=== PATIENT | female | born 1970 | race African-American/Black ===

== ENCOUNTER 2016-09-09 18:56 | Emergency (ER) | payer MEDICAID ==
[~2016-09-09] VITALS: Ht 154.9 cm; Wt 63.5 kg
[~2016-09-09 18:56] MED LIST: AMLO5TAB2 PO
[2016-09-09 18:59] VITALS: BP 130/82
[2016-09-09 19:42] LABS: Basophils # (auto) 0.1 uL; Basophils % (auto) 0.9 % (0.0-2.0); CONDITION Y; Eosinophils # (auto) 0.3 uL; Eosinophils % (auto) 4.8 % (0.0-7.0); Hemoglobin 11.3 g/dL (12.2-16.2); Lymphocytes # (auto) 2.5 uL; Lymphocytes % (auto) 40.3 % (10.0-50.0); Mean Corpuscular Hemoglobin 28.6 pg (28.0-32.0); Mean Corpuscular Hgb Conc. 32.1 g/dL (32.0-36.0); Mean Corpuscular Volume 89.2 fL (80.0-100.0); Mean Platelet Volume 9.8 fL (7.4-10.4); Monocytes # (auto) 0.7 uL; Monocytes % (auto) 11.1 % (0.0-12.0); Neutrophils # (auto) 2.7 uL; Neutrophils % (auto) 42.9 % (37.0-80.0); Platelet Count (auto) 212 10^3/uL (140-450); SUSPECT SEE PRINTOUT; White Blood Cell 6.2 10^3/uL (4.4-10.8)
[2016-09-09 20:10] LABS: Anion Gap 8 (5-15); Aspartate Aminotransferase 18 U/L (15-37); BUN/Creatinine Ratio 16.7; Blood Urea Nitrogen 18 mg/dL (7-18); Calcium 8.4 mg/dL (8.5-10.1); Carbon Dioxide 26 mmol/L (21-32); Chloride 108 mmol/L (98-107); GFR African American 71 mL/min; GFR Non-African American 58 mL/min; Glucose 90 mg/dL (74-106); Magnesium 2.1 mg/dL (1.6-2.6); Potassium 3.9 mmol/L (3.5-5.1); Sodium 142 mmol/L (136-145)
[2016-09-09 20:15] LABS: Alkaline Phosphatase 47 U/L (45-117); Bilirubin, Total 0.2 mg/dL (0.2-1.0); Total Protein 7.6 g/dL (6.4-8.2)
== END 2016-09-10 05:27 | disposition left against medical advice (07) ==
LOC: ER 19:07
DX: R07.9 Chest pain, unspecified (principal); Z53.21 Procedure and treatment not carried out due to patient leaving prior to being seen by health care provider
CPT/HCPCS: 36415; 71020; 80053; 83735; 84484; 85025; 93005

== ENCOUNTER 2017-05-12 15:20 | Emergency (ER) | payer MEDICAID ==
[~2017-05-12] VITALS: Ht 157.5 cm; Wt 63.5 kg
[2017-05-12 17:18] LABS: Urine Bacteria FEW /hpf (None Seen); Urine Blood 2+ /uL (Negative); Urine Mucus FEW (None Seen); Urine WBC 784 /hpf (0 - 5); Urine WBC Clumps PRESENT /hpf (None Seen)
[2017-05-12 17:31] VITALS: BP 130/77
[2017-05-12] MEDS ORDERED: PHENAZOPYRIDINE HCL 100 MG TAB PO ONE (17:45)
== END 2017-05-12 18:37 | disposition home or self-care (01) ==
LOC: ER 15:24
DX: N39.0 Urinary tract infection, site not specified (principal); J45.909 Unspecified asthma, uncomplicated; E11.9 Type 2 diabetes mellitus without complications; I10 Essential (primary) hypertension; Z88.2 Allergy status to sulfonamides
CPT/HCPCS: 81001

== ENCOUNTER 2017-12-26 10:44 | Emergency (ER) | payer MEDICAID ==
[~2017-12-26] VITALS: Ht 154.9 cm; Wt 68.0 kg
[~2017-12-26 10:44] MED LIST changes: +AMLO5TAB13 PO; -AMLO5TAB2 PO
[2017-12-26 10:58] VITALS: BP 153/81
== END 2017-12-26 12:01 | disposition home or self-care (01) ==
LOC: ER 10:44
DX: J01.10 Acute frontal sinusitis, unspecified (principal); I10 Essential (primary) hypertension; J45.909 Unspecified asthma, uncomplicated; Z88.2 Allergy status to sulfonamides
CPT/HCPCS: 81002

== ENCOUNTER 2020-09-12 21:30 | Emergency (ER) | payer MEDICAID ==
[~2020-09-12] VITALS: Ht 154.9 cm; Wt 68.0 kg
[~2020-09-12 21:30] MED LIST changes: +AMLO-489 PO; -AMLO5TAB13 PO
[2020-09-13 00:09] VITALS: BP 118/82
[2020-09-13] MEDS ORDERED: HYDROcodone-ACET 10/325MG TAB PO ONE (01:15)
== END 2020-09-13 03:41 | disposition home or self-care (01) ==
LOC: ER 21:30
DX: Q18.1 Preauricular sinus and cyst (principal); R59.0 Localized enlarged lymph nodes; I10 Essential (primary) hypertension; J45.909 Unspecified asthma, uncomplicated; Z79.899 Other long term (current) drug therapy; Z88.2 Allergy status to sulfonamides

== ENCOUNTER 2020-11-01 08:46 | Emergency (ER) | payer MEDICAID ==
[~2020-11-01] VITALS: Ht 154.9 cm; Wt 72.6 kg
[2020-11-01 10:41] VITALS: BP 134/86
== END 2020-11-01 11:32 | disposition home or self-care (01) ==
LOC: ER 08:46
DX: S05.01XA Injury of conjunctiva and corneal abrasion without foreign body, right eye, initial encounter (principal); J45.909 Unspecified asthma, uncomplicated; I10 Essential (primary) hypertension; Z88.2 Allergy status to sulfonamides; X58.XXXA Exposure to other specified factors, initial encounter; Y93.89 Activity, other specified; Y92.89 Other specified places as the place of occurrence of the external cause; Y99.8 Other external cause status

== ENCOUNTER 2021-04-24 10:18 | Emergency (ER) | payer MEDICAID ==
[~2021-04-24] VITALS: Ht 165.1 cm; Wt 74.8 kg
[2021-04-24 10:49] VITALS: BP 141/51
[2021-04-24] MEDS ORDERED: AMOX-277 PO (11:35)
[2021-04-24] MEDS ORDERED: ACE650RS PR ×2 (11:35→11:40)
== END 2021-04-24 11:43 | disposition home or self-care (01) ==
LOC: ER 10:18
DX: J03.90 Acute tonsillitis, unspecified (principal); H66.91 Otitis media, unspecified, right ear; J45.909 Unspecified asthma, uncomplicated; I10 Essential (primary) hypertension

== ENCOUNTER 2022-07-16 14:07 | Emergency (ER) | payer MEDICAID ==
[~2022-07-16 14:07] MED LIST changes: +ACE650RS PR; +AMOX-277 PO
[2022-07-16] MEDS ORDERED: ACET-1080 PO (15:08)
[2022-07-16] MEDS ORDERED: METH750T22 PO (15:09)
[2022-07-16 15:12] VITALS: BP 131/74
[2022-07-16] MEDS ORDERED: ACETAMINOPHEN 500 MG TAB PO ONE (15:15)
== END 2022-07-16 15:49 | disposition home or self-care (01) ==
LOC: ER 14:07
DX: M24.812 Other specific joint derangements of left shoulder, not elsewhere classified (principal); J45.909 Unspecified asthma, uncomplicated; I10 Essential (primary) hypertension; Z88.2 Allergy status to sulfonamides; Z88.1 Allergy status to other antibiotic agents
CPT/HCPCS: 73030; 93005

== ENCOUNTER 2022-09-17 10:30 | Emergency (ER) | payer MEDICAID ==
[~2022-09-17] VITALS: Ht 154.9 cm; Wt 71.3 kg
[~2022-09-17 10:30] MED LIST changes: +ACET-1080 PO; -AMLO-489 PO; +AMLO1TAB22 PO; -AMOX-277 PO; +AMOX875T4 PO; +METH-1182 PO
[2022-09-17 10:46] VITALS: BP_DIAS 81
[2022-09-17 11:17] VITALS: BP_SYST 73
[2022-09-17] MEDS ORDERED: SODIUM CHLORIDE 0.9% 1,000 ML IV ONE (11:45)
[2022-09-17] MEDS ORDERED: PROCHLORPERAZINE EDISYLATE 5 MG/ML 2ML VIAL IM ONE (11:45)
[2022-09-17 11:50] LABS: Basophils # (auto) 0.1 10 ^3/uL (0-0.2); Basophils % (auto) 0.9 % (0.0-2.0); Eosinophils # (auto) 0.2 10 ^3/uL (0-0.8); Eosinophils % (auto) 2.7 % (0.0-7.0); Hematocrit 38.5 % (36.0-46.0); Hemoglobin 12.4 g/dL (12.2-16.2); Lymphocytes % (auto) 34.7 % (10.0-50.0); Mean Corpuscular Hemoglobin 28.3 pg (28.0-32.0); Mean Corpuscular Hgb Conc. 32.1 g/dL (32.0-36.0); Monocytes # (auto) 0.4 10 ^3/uL (0-1.3); Monocytes % (auto) 6.7 % (0.0-12.0); Neutrophils # (auto) 3.2 10 ^3/uL (1.6-8.6); Nucleated Red Blood Cells % 0.1 %; Red Blood Cells 4.38 10^6/uL (4.0-5.20); Red Cell Distribution Width 13.9 % (11.8-14.3); White Blood Cell 5.8 10^3/uL (4.4-10.8)
[2022-09-17 12:29] LABS: Albumin 4.3 g/dL (3.4-5.0); BUN/Creatinine Ratio 13.9 (10.0-20.0); Calcium 9.8 mg/dL (8.5-10.1); Potassium 4.5 mmol/L (3.5-5.1)
[2022-09-17 13:08] LABS: Bilirubin, Total 0.3 mg/dL (0.2-1.0); Total Protein 8.4 g/dL (6.4-8.2)
[2022-09-17 14:16] LABS: Urine Bacteria NONE SEEN /hpf (None Seen); Urine Blood Negative /uL (Negative); Urine Specific Gravity 1.018 (1.001-1.035); Urine WBC <1 /hpf (0 - 5)
== END 2022-09-17 14:35 | disposition left against medical advice (07) ==
LOC: ER 10:30
DX: E86.0 Dehydration (principal); R42 Dizziness and giddiness; I10 Essential (primary) hypertension; R06.02 Shortness of breath; Z88.2 Allergy status to sulfonamides
CPT/HCPCS: 36415; 70450; 71045; 80053; 81001; 83880; 84484; 85025; 87040; 93005; 96360; 96372; 99285; J0780; J7030

== ENCOUNTER 2023-03-20 11:40 | Emergency (ER) | payer MEDICAID ==
[~2023-03-20] VITALS: Ht 154.9 cm; Wt 69.0 kg
[2023-03-20 12:12] LABS: Basophils # (auto) 0.1 10 ^3/uL (0-0.2); Basophils % (auto) 0.8 % (0.0-2.0); Eosinophils # (auto) 0.4 10 ^3/uL (0-0.8); Eosinophils % (auto) 4.7 % (0.0-7.0); Hematocrit 36.8 % (36.0-46.0); Lymphocytes # (auto) 2.9 10 ^3/uL (0.4-5.4); Lymphocytes % (auto) 31.3 % (10.0-50.0); Mean Corpuscular Hemoglobin 28.2 pg (28.0-32.0); Mean Corpuscular Hgb Conc. 32.6 g/dL (32.0-36.0); Mean Corpuscular Volume 86.5 fL (80.0-100.0); Monocytes # (auto) 0.9 10 ^3/uL (0-1.3); Monocytes % (auto) 9.8 % (0.0-12.0); Neutrophils # (auto) 4.9 10 ^3/uL (1.6-8.6); Neutrophils % (auto) 53.4 % (37.0-80.0); Nucleated Red Blood Cells % 0.1 %; Red Blood Cells 4.25 10^6/uL (4.0-5.20); Red Cell Distribution Width 14.3 % (11.8-14.3); White Blood Cell 9.1 10^3/uL (4.4-10.8)
[2023-03-20] MEDS ORDERED: KETOROLAC TROMETH 30 MG/ML 1ML VIAL IV ONE (12:15)
[2023-03-20] MEDS ORDERED: SODIUM CHLORIDE 0.9% 1,000 ML IV ONE (12:15)
[2023-03-20] MEDS ORDERED: ASPirin 81 mg TAB PO ONE (12:15)
[2023-03-20 12:20] LABS: INR 0.97 (0.9-1.15); Partial Thromboplastin Time 28.5 SEC (24.5-34.5); Prothrombin Time 10.2 sec (9.3-11.8)
[2023-03-20 12:27] LABS: Urine Bacteria NONE SEEN /hpf (None Seen); Urine Blood Negative /uL (Negative); Urine Clarity Clear (Clear); Urine Color Yellow (Yellow); Urine Mucus FEW (None Seen); Urine Protein, UAD TRACE (Negative); Urine Specific Gravity 1.028 (1.001-1.035); Urine WBC 3 /hpf (0 - 5)
[2023-03-20 12:27] LABS: Alanine Aminotransferase 22 U/L (7-40); Albumin 5.2 g/dL (3.2-4.8); Alkaline Phosphatase 82 U/L (46-116); Anion Gap 9 (5-15); Aspartate Aminotransferase 23 U/L (13-40); BUN/Creatinine Ratio 13.7 (10.0-20.0); Bilirubin, Total 0.2 mg/dL (0.2-1.0); Blood Urea Nitrogen 27 mg/dL (9-23); Calcium 10.8 mg/dL (8.5-10.1); Carbon Dioxide 28 mmol/L (20-30); Chloride 100 mmol/L (98-107); Glucose 122 mg/dL (74-106); Potassium 4.4 mmol/L (3.5-5.1); Sodium 137 mmol/L (136-145); Total Protein 8.3 g/dL (5.7-8.2)
[2023-03-20] MEDS ORDERED: HYDR-4902 PO (15:05)
[2023-03-20] MEDS ORDERED: NITR-87 PO (15:05)
[2023-03-20 17:44] VITALS: BP 110/74; PULSE 84; RESP 19; TEMP 98.1; O2SAT 96
== END 2023-03-20 17:46 | disposition home or self-care (01) ==
LOC: ER 11:40
DX: E11.21 Type 2 diabetes mellitus with diabetic nephropathy (principal); R07.89 Other chest pain; N39.0 Urinary tract infection, site not specified; M79.601 Pain in right arm; M79.605 Pain in left leg; I10 Essential (primary) hypertension; J45.909 Unspecified asthma, uncomplicated; Z98.890 Other specified postprocedural states; Z88.8 Allergy status to other drugs, medicaments and biological substances; Z79.899 Other long term (current) drug therapy
CPT/HCPCS: 36415; 71046; 80053; 81001; 84484; 85025; 85610; 85730; 93005; 96361; 96374; 99285; J1885; J7030

== ENCOUNTER 2023-12-05 14:24 | Inpatient (IN) | payer MEDICAID ==
[~2023-12-05] VITALS: Ht 156.2 cm; Wt 72.3 kg
[~2023-12-05 14:24] MED LIST changes: +HYDR-4902 PO; +NITR-87 PO
[2023-12-05 15:57] LABS: Chloride 103 mmol/L (98-107); Potassium 4.4 mmol/L (3.5-5.1); Sodium 138 mmol/L (136-145)
[2023-12-05 15:58] LABS: Anion Gap 7 (5-15); Calcium 10.2 mg/dL (8.7-10.4); Carbon Dioxide 28 mmol/L (20-30)
[2023-12-05 16:00] LABS: Basophils # (auto) 0.1 10 ^3/uL (0-0.2); Basophils % (auto) 0.9 % (0.0-2.0); Eosinophils # (auto) 0.3 10 ^3/uL (0-0.8); Eosinophils % (auto) 5.1 % (0.0-7.0); Hematocrit 34.9 % (36.0-46.0); Hemoglobin 11.4 g/dL (12.2-16.2); Lymphocytes # (auto) 3.3 10 ^3/uL (0.4-5.4); Lymphocytes % (auto) 47.6 % (10.0-50.0); Mean Corpuscular Hemoglobin 28.8 pg (28.0-32.0); Mean Corpuscular Hgb Conc. 32.5 g/dL (32.0-36.0); Mean Corpuscular Volume 88.5 fL (80.0-100.0); Monocytes # (auto) 0.7 10 ^3/uL (0-1.3); Monocytes % (auto) 9.8 % (0.0-12.0); Neutrophils # (auto) 2.5 10 ^3/uL (1.6-8.6); Neutrophils % (auto) 36.6 % (37.0-80.0); Nucleated Red Blood Cells % 0.1 %; Platelet Count (auto) 256 10^3/uL (140-450); Red Blood Cells 3.95 10^6/uL (4.0-5.20); Red Cell Distribution Width 14.1 % (11.8-14.3); White Blood Cell 6.8 10^3/uL (4.4-10.8)
[2023-12-05 16:03] LABS: Blood Urea Nitrogen 18 mg/dL (9-23); Glucose 79 mg/dL (74-106)
[2023-12-05] MEDS ORDERED: DOCUSATE SOD 100 MG CAP PO PRN (19:30)
[2023-12-05] MEDS ORDERED: ACETAMINOPHEN 325 MG TAB PO PRN (19:30)
[2023-12-05] MEDS ORDERED: NITROGLYCERIN 0.4 MG SL TAB SL PRN (20:45)
[2023-12-05] MEDS ORDERED: DEXTROSE (50%) 50ML SYRG IV PRN (20:45)
[2023-12-05] MEDS: ACCU-CHEK COMFORT CURVE STRIP VI SCH (22:00)
[2023-12-05] MEDS: InsuLIN REG 1unit/0.01ml Soln (100units/ml) SC SCH (22:00)
[2023-12-05 22:41] VITALS: BP 122/68; PULSE 76; RESP 20; TEMP 98; O2SAT 100
[2023-12-06] MEDS: HYDROcodone-ACET 5/325MG TAB PO PRN (04:10)
[2023-12-06 06:57] LABS: Basophils # (auto) 0 10 ^3/uL (0-0.2); Basophils % (auto) 0.5 % (0.0-2.0); Eosinophils # (auto) 0.4 10 ^3/uL (0-0.8); Hematocrit 36.8 % (36.0-46.0); Hemoglobin 12.1 g/dL (12.2-16.2); Lymphocytes # (auto) 2.8 10 ^3/uL (0.4-5.4); Lymphocytes % (auto) 43.6 % (10.0-50.0); Mean Corpuscular Hemoglobin 28.9 pg (28.0-32.0); Mean Corpuscular Hgb Conc. 32.9 g/dL (32.0-36.0); Mean Corpuscular Volume 87.9 fL (80.0-100.0); Monocytes # (auto) 0.6 10 ^3/uL (0-1.3); Monocytes % (auto) 9.6 % (0.0-12.0); Neutrophils # (auto) 2.6 10 ^3/uL (1.6-8.6); Neutrophils % (auto) 40.3 % (37.0-80.0); Nucleated Red Blood Cells % 0.1 %; Platelet Count (auto) 235 10^3/uL (140-450); Red Blood Cells 4.19 10^6/uL (4.0-5.20); Red Cell Distribution Width 14.4 % (11.8-14.3); White Blood Cell 6.5 10^3/uL (4.4-10.8)
[2023-12-06 07:25] LABS: Alanine Aminotransferase 21 U/L (7-40); Albumin 4.5 g/dL (3.2-4.8); Alkaline Phosphatase 69 U/L (46-116); Anion Gap 9 (5-15); Aspartate Aminotransferase 19 U/L (13-40); BUN/Creatinine Ratio 10.3 (10.0-20.0); Bilirubin, Total 0.3 mg/dL (0.2-1.0); Blood Urea Nitrogen 14 mg/dL (9-23); Calcium 10.4 mg/dL (8.7-10.4); Carbon Dioxide 24 mmol/L (20-30); Chloride 104 mmol/L (98-107); Glucose 95 mg/dL (74-106); Potassium 4.1 mmol/L (3.5-5.1); Sodium 137 mmol/L (136-145); Total Protein 7.4 g/dL (5.7-8.2)
[2023-12-06] MEDS: ASPirin 81 mg TAB PO SCH (09:56)
[2023-12-06] MEDS: ALBUTEROL SULF 2.5 MG/0.5ML(0.5%) NEB SOLN NEB PRN (12:29)
[2023-12-06] MEDS: IPRATROPIUM BROM 0.5 MG/2.5ML INH SOL NEB PRN (12:29)
[2023-12-06 13:05] VITALS: PULSE 72; RESP 16
[2023-12-06] MEDS: MORPHINE SULFATE INJ 2 MG/ml SYRG IV PRN (17:04)
[2023-12-06] MEDS: ONDANSETRON HCL 4 MG/2 ML VIAL IV PRN (17:04)
[2023-12-06 18:25] VITALS: O2SAT 99
[2023-12-06] MEDS: amLODIPine BESYLATE 5 MG TAB PO SCH (23:04)
[2023-12-06] MEDS: PRAVASTATIN SODIUM 20 MG TAB PO SCH (23:10)
[2023-12-07] VITALS (11 sets, daily range): BP systolic 100–158; BP diastolic 61–84; PULSE 68–113; RESP 16–18; TEMP 97.6–98.1; O2SAT 95–100
[2023-12-07] MEDS ORDERED: ROSU20TA56 PO (03:41)
[2023-12-07] MEDS ORDERED: PRED10TA PO (03:41)
[2023-12-07] MEDS ORDERED: METO25TA93 PO (03:41)
[2023-12-07] MEDS ORDERED: HYDR12.55 PO (03:41)
[2023-12-07] MEDS ORDERED: AMLO1TAB21 PO (03:41)
[2023-12-07] MEDS ORDERED: SITA100T7 PO (03:41)
[2023-12-07] MEDS ORDERED: FERR-7 PO (03:41)
[2023-12-07] MEDS ORDERED: HYDR-4072 PO (03:41)
[2023-12-07] MEDS ORDERED: FOLI-119 PO (03:41)
[2023-12-07] MEDS ORDERED: BECL80AE11 IN (03:46)
[2023-12-07] MEDS ORDERED: BUDE1AER4 IN (03:50)
[2023-12-07 07:52] LABS: Basophils # (auto) 0 10 ^3/uL (0-0.2); Basophils % (auto) 0.5 % (0.0-2.0); Eosinophils # (auto) 0.3 10 ^3/uL (0-0.8); Eosinophils % (auto) 4.7 % (0.0-7.0); Hematocrit 34.9 % (36.0-46.0); Hemoglobin 11.7 g/dL (12.2-16.2); Lymphocytes # (auto) 3.2 10 ^3/uL (0.4-5.4); Mean Corpuscular Hemoglobin 29.6 pg (28.0-32.0); Mean Corpuscular Hgb Conc. 33.6 g/dL (32.0-36.0); Mean Corpuscular Volume 88.1 fL (80.0-100.0); Monocytes # (auto) 0.7 10 ^3/uL (0-1.3); Monocytes % (auto) 10.1 % (0.0-12.0); Neutrophils # (auto) 2.6 10 ^3/uL (1.6-8.6); Neutrophils % (auto) 37.7 % (37.0-80.0); Platelet Count (auto) 245 10^3/uL (140-450); Red Blood Cells 3.96 10^6/uL (4.0-5.20); Red Cell Distribution Width 14.1 % (11.8-14.3); White Blood Cell 6.8 10^3/uL (4.4-10.8)
[2023-12-07 08:17] LABS: Anion Gap 9 (5-15); Carbon Dioxide 25 mmol/L (20-30); Chloride 104 mmol/L (98-107); Potassium 3.8 mmol/L (3.5-5.1); Sodium 138 mmol/L (136-145)
[2023-12-07 08:18] LABS: Calcium 9.8 mg/dL (8.7-10.4)
[2023-12-07 08:23] LABS: BUN/Creatinine Ratio 13.2 (10.0-20.0); Blood Urea Nitrogen 22 mg/dL (9-23); Glucose 108 mg/dL (74-106)
[2023-12-07] MEDS: hydroCHLOROthiazide 25 MG TAB PO SCH (09:18)
[2023-12-07] MEDS ORDERED: BACLOFEN 10 MG TAB PO ONE (22:15)
[2023-12-08] VITALS (8 sets, daily range): BP systolic 97–116; BP diastolic 51–74; PULSE 68–89; RESP 18–22; TEMP 97.5–98; O2SAT 97–99
[2023-12-08 06:02] LABS: Basophils # (auto) 0 10 ^3/uL (0-0.2); Basophils % (auto) 0.4 % (0.0-2.0); Eosinophils # (auto) 0.2 10 ^3/uL (0-0.8); Eosinophils % (auto) 3.6 % (0.0-7.0); Hemoglobin 12.5 g/dL (12.2-16.2); Lymphocytes # (auto) 3.1 10 ^3/uL (0.4-5.4); Lymphocytes % (auto) 45.6 % (10.0-50.0); Mean Corpuscular Hemoglobin 28.9 pg (28.0-32.0); Mean Corpuscular Hgb Conc. 32.9 g/dL (32.0-36.0); Mean Corpuscular Volume 87.9 fL (80.0-100.0); Monocytes # (auto) 0.7 10 ^3/uL (0-1.3); Neutrophils # (auto) 2.8 10 ^3/uL (1.6-8.6); Neutrophils % (auto) 40.4 % (37.0-80.0); Nucleated Red Blood Cells % 0.1 %; Platelet Count (auto) 266 10^3/uL (140-450); Red Blood Cells 4.32 10^6/uL (4.0-5.20); Red Cell Distribution Width 14.2 % (11.8-14.3); White Blood Cell 6.9 10^3/uL (4.4-10.8)
[2023-12-08 06:19] LABS: Anion Gap 4 (5-15); Carbon Dioxide 29 mmol/L (20-30); Chloride 102 mmol/L (98-107); Potassium 4.2 mmol/L (3.5-5.1); Sodium 135 mmol/L (136-145)
[2023-12-08 06:20] LABS: Calcium 10.7 mg/dL (8.7-10.4)
[2023-12-08 06:25] LABS: Blood Urea Nitrogen 24 mg/dL (9-23); Glucose 97 mg/dL (74-106)
[2023-12-08] MEDS: BACLOFEN 10 MG TAB PO ONE (12:22)
== END 2023-12-08 20:43 | disposition home or self-care (01) | DRG 861 ==
LOC: ER 14:24 → TELE 20:41 → TELE-WESTW 12-07 02:45 → WEST WING 12-07 17:09
PROVIDERS: ADMIT Internal Medicine Geriatric Medicine; ATTEND Internal Medicine Geriatric Medicine
DX: R53.1 Weakness (principal); E11.22 Type 2 diabetes mellitus with diabetic chronic kidney disease; I13.10 Hypertensive heart and chronic kidney disease without heart failure, with stage 1 through stage 4 chronic kidney disease, or unspecified chronic kidney disease; E78.5 Hyperlipidemia, unspecified; M54.12 Radiculopathy, cervical region; N18.30 Chronic kidney disease, stage 3 unspecified; J44.9 Chronic obstructive pulmonary disease, unspecified; Z88.2 Allergy status to sulfonamides
CPT/HCPCS: 36415; 70450; 70551; 80048; 80053; 82306; 82607; 82962; 84443; 84484; 85025; 93005; 93306; 93886; 93971; 94640; 99291; G0378; J2405

== ENCOUNTER 2024-03-30 10:51 | Emergency (ER) | payer MEDICAID ==
[~2024-03-30] VITALS: Ht 154.9 cm; Wt 72.3 kg
[~2024-03-30 10:51] MED LIST changes: -ACE650RS PR; -ACET-1080 PO; +AMLO1TAB21 PO; -AMLO1TAB22 PO; -AMOX875T4 PO; +BECL80AE11 IN; +BUDE1AER4 IN; +FERR-7 PO; +FOLI-119 PO; +HYDR-4072 PO; -HYDR-4902 PO; +HYDR12.55 PO; -METH-1182 PO; +METO25TA93 PO; -NITR-87 PO; +PRED10TA PO; +ROSU20TA56 PO; +SITA100T7 PO
--- NOTE | 2024-03-30 12:03 | ED.PDOC ---
History of Present Illness HPI Comments Kym Jackson is a 53-year-old female patient who presents to the ED with chief complaint of hypoglycemia. Patient has device that continuously monitors glucose, alert family of low blood sugar (33) we will patient was sleeping, when awake patient felt dizzy and generalized shakiness, requiring food intake with partial resolution of hypoglycemia. Per patient, she has not been taking metformin and Januvia for the past month due to low glucose levels, has started taking prednisone approximately one month ago due to or a and lupus. Patient also reports presenting fever, chills, dyspnea, dry cough and loose stool for the past week. Patient has retrosternal stabbing chest pain in variable f unctional class and abdominal pain which has lasted for over one month, has been evaluated by candle wrapper who suspect pain secondary to lipoma. Past medical history: Diabetes, asthma, hypertension, CKD stage III, gout, lupus, RA, COPD with no home oxygen requirement, torticollis secondary to swollen lymph nodes Surgical history: 2010 , wrist surgery Family history: Diabetes and hypertension in all family members. Ovarian cancer in grandmother, grandfather had brain cancer Social history: Lives in [place] with and sons. Denies current tobacco, alcohol and other drug abuse Allergies: Sulfas Home medication: Metformin and Januvia which was discontinued approximately one month ago. Symbicort, allopurinol, prednisone 10 mg p.o. daily, amlodipine, hydrochlorothiazide, [place], baclofen Chief Complaint: Hypoglycemia Time Seen by MD: 10:53 Primary Care Provider: HILDA Allergies: Coded Allergies: Sulfa Antibiotics (Verified Adverse Reaction, Severe, 02/29/16) Home Meds Reported Medications Budesonide-Formoterol Fumarate (Budesonide/Formoterol Fum 160-4.5 Mcg/Act) 1 Aer Aer, 2 PUFF IN BID, AER 12/07/23 Beclomethasone Dipropionate (Qvar Redihaler) 80 Mcg/Act Aer, 2 PUFF IN QID, AER 12/07/23 Prednisone (Prednisone) 10 Mg Tab, 1 TAB PO DAILY 12/07/23 Metoprolol Succinate (Metoprolol Succinate Er) 25 Mg Tab, 1 TAB PO QWEEKLY 12/07/23 Rosuvastatin Calcium (Rosuvastatin Calcium) 20 Mg Tab, 1 TAB PO DAILY 12/07/23 Hydrocodone-Acetaminophen (Hydrocodone/Acetaminophen 10-325 mg) 1 Tab Tab, 1 TAB PO Q6HPRN PRN for PAIN SCALE 7 THRU 10 12/07/23 Ferrous Sulfate (Iron) 325 Mg Tab, 325 MG PO DAILY, TAB 12/07/23 Folic Acid (Folic Acid) 1 Mg Tab, 1 TAB PO DAILY 12/07/23 Sitagliptin Phosphate (Januvia) 100 Mg Tab, 1 TAB PO DAILY 12/07/23 Amlodipine Besylate (Amlodipine Besylate) 2.5 Mg Tab, 1 TAB PO DAILY 12/07/23 Hydrochlorothiazide (Hydrochlorothiazide) 12.5 Mg Tab, 1 TAB PO QAM 12/07/23 Mode of Arrival: Ambulatory Past Medical History PAST MEDICAL HISTORY: Asthma, DM, HTN 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 BUSINESS ACCOUNT LEADER History Family History Family History: Unknown Social History Smoker: Non-Smoker Alcohol: Denies ETOH Use Drugs: Denies Drug Use Lives In: Home Physical Exam General Appearance: No Apparent Distress, Normal HEENT: Normal ENT Inspection, Pharynx Normal, TMs Normal Neck: Full Range of Motion, Lymphadenopathy (R), Normal, Normal Inspection, Tender Lateral Respiratory: Chest Non-Tender, Lungs Clear, No Accessory Muscle Use, No Respiratory Distress, Normal Breath Sounds Cardiovascular: No Edema, No JVD, No Murmur, No Gallop, Normal Peripheral Pulses, Regular Rate/Rhythm Breast Exam: Deferred Gastrointestinal: No Organomegaly, No Pulsatile Mass, Normal Bowel Sounds, RUQ, Soft Genitalia: Deferred Pelvic: Deferred Rectal: Deferred Extremities: No calf tenderness, Normal capillary refill, Normal inspection, Normal range of motion, Non-tender, No pedal edema Neurologic: Alert, beef pluck trimmer II-XII nml as Tested, No Motor Deficits, Normal Affect, Normal Mood, No Sensory Deficits Cerebellar Function: Normal Reflexes: Normal Skin: Dry, Normal Color, Warm Lymphatic: Cervical Adenopathy (R) Was a procedure done? Was a procedure done?: No Differential Dx Considerations may include: Pneumonia, UTI, malignancy, medication adverse effect, sepsis, COPD exacerbation X-Ray, Labs, Meds, VS Vital Signs Date Time Temp Pulse Resp B/P (MAP) Pulse Ox O2 Delivery O2 Flow Rate FiO2 03/30/24 12:12 98.1 72 18 114/78 (90) 98 98.1 03/30/24 11:08 98.2 88 18 143/96 (112) 100 Lab Test 03/30/24 13:24 03/30/24 12:47 03/30/24 11:06 Range/Units White Blood Count 6.3 4.4-10.8 10^3/uL Red Blood Count 4.53 4.0-5.20 10^6/uL Hemoglobin 12.9 12.2-16.2 g/dL Hematocrit 39.8 36.0-46.0 % Mean Corpuscular Volume 87.7 80.0-100.0 fL Mean Corpuscular Hemoglobin 28.6 28.0-32.0 pg Mean Corpuscular Hemoglobin Concent 32.6 32.0-36.0 g/dL Red Cell Distribution Width 14.0 11.8-14.3 % Platelet Count 292 140-450 10^3/uL Mean Platelet Volume 8.8 6.9-10.8 fL Neutrophils (%) (Auto) 50.9 37.0-80.0 % Lymphocytes (%) (Auto) 33.0 10.0-50.0 % Monocytes (%) (Auto) 12.0 0.0-12.0 % Eosinophils (%) (Auto) 3.5 0.0-7.0 % Basophils (%) (Auto) 0.6 0.0-2.0 % Neutrophils # (Auto) 3.2 1.6-8.6 10 ^3/uL Lymphocytes # (Auto) 2.1 0.4-5.4 10 ^3/uL Monocytes # (Auto) 0.8 0-1.3 10 ^3/uL Eosinophils # (Auto) 0.2 0-0.8 10 ^3/uL Basophils # (Auto) 0 0-0.2 10 ^3/uL Nucleated Red Blood Cells 0.1 % Prothrombin Time 10.0 9.3-11.8 sec Prothrombin Time INR 0.94 0.9-1.15 Activated Partial Thromboplast Time 26.6 24.5-34.5 SEC Sodium Level 137 136-145 mmol/L Potassium Level 4.9 3.5-5.1 mmol/L Chloride Level 103 98-107 mmol/L Carbon Dioxide Level 29 20-31 mmol/L Anion Gap 5 5-15 Blood Urea Nitrogen 16 9-23 mg/dL Creatinine 1.38 H 0.550-1.02 mg/dL Glomerular Filtration Rate Calc 46 >90 mL/min BUN/Creatinine Ratio 11.6 10.0-20.0 Serum Glucose 103 74-106 mg/dL Lactic Acid Level 0.7 0.4-2.0 mmol/L Calcium Level 11.3 H 8.7-10.4 mg/dL Magnesium Level 2.2 1.6-2.6 mg/dL Total Bilirubin 0.4 0.2-1.0 mg/dL Aspartate Amino Transferase (AST) 15 13-40 U/L Alanine Aminotransferase (ALT) 16 7-40 U/L Alkaline Phosphatase 79 46-116 U/L B-Type Natriuretic Peptide 3.36 0-100 pg/mL Total Protein 8.5 H 5.7-8.2 g/dL Albumin 5.1 H 3.2-4.8 g/dL Thyroid Stimulating Hormone (TSH) 0.82 0.55-4.78 uIU/mL Influenza Type A Antigen Negative Negative Influenza Type B Antigen Negative Negative SARS-CoV-2 Antigen (Rapid) Negative NEGATIVE Urine Color Light-yellow Yellow Urine Clarity Clear Clear Urine pH 7.0 5.0-9.0 Urine Specific [place] 1.019 1.001-1.035 Urine Protein Negative Negative Urine Ketones Negative Negative Urine Blood Negative Negative /uL Urine Nitrite Negative Negative Urine Bilirubin Negative Negative Urine Urobilinogen Normal Negative mg/dL Urine Leukocyte Esterase Trace Negative /uL Urine RBC <1 0 - 4 /hpf Urine WBC 2 0 - 5 /hpf Urine Squamous Epithelial Cells Few <5 /hpf Urine Bacteria Few H None Seen /hpf Urine Hyaline Casts Few 0 - 2 /lpf Urine Glucose Normal Normal mg/dL Urine Opiates Screen Pos NEGATIVE Urine Fentanyl Screen Neg NEGATIVE Urine Barbiturates Screen Neg NEGATIVE Urine Phencyclidine Screen Neg NEGATIVE Urine Amphetamines Screen Neg NEGATIVE Urine Benzodiazepines Screen Neg NEGATIVE Urine Cocaine Screen Neg NEGATIVE Urine Cannabinoids Screen Neg NEGATIVE X-Ray, Labs, Meds, VS Comment Review laboratory results, chest x-ray, urine results. All within normal limits except calcium (11.3) and creatinine (patient already has history of CKD stage 3) Time of 1ST Reevaluation: 14:35 Reevaluation 1ST: Unchanged Patient Education/Counseling: Diagnosis, Treatment, Prognosis, Need For Follow Up Family Education/Counseling: Diagnosis, Treatment, Prognosis, Need For Follow Up Departure 1 Departure Time of Disposition: 14:35 Impression: Primary Impression: Diabetes mellitus with hypoglycemia Disposition: HOME / SELF CARE / HOMELESS Condition: Stable Additional Instructions: Few laboratory, vitals signs, chest x-ray and urine results. All except creatinine and calcium were within normal limits. Ruled out severe sepsis at this time, inpatient that has immunodeficiency due to prednisone and autoimmune disease. Probable cause of hypoglycemia prolonged fasting patient with diabetes. Recommend verifying glucose with other message than the continuous blood glucose machine (i.e. fingerstick), avoid prolonged periods of fasting. Patient hemodynamically stable, asymptomatic, in condition to be discharged. Grandson under abdomen medical therapy, gave him person healthy lifestyle habits, and follow up with PCP. Critical Care Note Critical Care Time?: No Stability Stability form required: No Heart Score Heart Score: Heart Score Response (Comments) Value History N/A 0 EKG N/A 0 Age N/A 0 Risk Factors N/A 0 Troponin N/A 0 Total 0 AUDRA ARANDA RESIDENT Mar 30, 2024 12:03
--- NOTE | 2024-03-30 12:13 | DVH ---
EXAM: XY CHEST PORTABLE Indication: SOB Technique: Single frontal view of the chest was obtained Comparison: XY CHEST PORTABLE on DOS: 09/17/22 FINDINGS: Lines and Tubes: None Lungs: No focal consolidation. Pleura: No effusion. No pneumothorax. Cardiomediastinal contours: Unremarkable Bones: No acute osseous abnormality. IMPRESSION: No acute cardiopulmonary disease.
[2024-03-30] MEDS: ONDANSETRON ODT 4 MG TAB PO ONE (12:23)
[2024-03-30 12:59] LABS: Urine Bacteria FEW /hpf (None Seen); Urine Blood Negative /uL (Negative); Urine Clarity Clear (Clear); Urine Color Light-Yellow (Yellow); Urine Hyaline Cast FEW /lpf (0 - 2); Urine Protein, UAD Negative (Negative); Urine Specific Gravity 1.019 (1.001-1.035); Urine Squamous Epithelial Cell FEW /hpf (<5); Urine Urobilinogen Normal (Negative); Urine WBC 2 /hpf (0 - 5)
[2024-03-30 13:07] LABS: Amphetamine Screen, Urine Neg (NEGATIVE); Barbiturate Scree,Urine Neg (NEGATIVE); Benzodiazephine Screen, Urine Neg (NEGATIVE); Cannabinoid Screen, Urine Neg (NEGATIVE); Cocaine Screen, Urine Neg (NEGATIVE); Opiate Scree,Urine Pos (NEGATIVE); Phencyclidine Screen, Urine Neg (NEGATIVE)
[2024-03-30 13:52] LABS: COVID19 ANTIGEN SOFIA FIA NEGATIVE (NEGATIVE); Rapid Influenza A Negative (Negative); Rapid Influenza B Negative (Negative)
[2024-03-30 14:01] LABS: Basophils # (auto) 0 10 ^3/uL (0-0.2); Basophils % (auto) 0.6 % (0.0-2.0); Eosinophils # (auto) 0.2 10 ^3/uL (0-0.8); Eosinophils % (auto) 3.5 % (0.0-7.0); Hematocrit 39.8 % (36.0-46.0); Hemoglobin 12.9 g/dL (12.2-16.2); Lymphocytes # (auto) 2.1 10 ^3/uL (0.4-5.4); Mean Corpuscular Hemoglobin 28.6 pg (28.0-32.0); Mean Corpuscular Hgb Conc. 32.6 g/dL (32.0-36.0); Mean Corpuscular Volume 87.7 fL (80.0-100.0); Monocytes # (auto) 0.8 10 ^3/uL (0-1.3); Neutrophils # (auto) 3.2 10 ^3/uL (1.6-8.6); Neutrophils % (auto) 50.9 % (37.0-80.0); Nucleated Red Blood Cells % 0.1 %; Platelet Count (auto) 292 10^3/uL (140-450); Red Blood Cells 4.53 10^6/uL (4.0-5.20); White Blood Cell 6.3 10^3/uL (4.4-10.8)
[2024-03-30 14:02] LABS: Alanine Aminotransferase 16 U/L (7-40); Alkaline Phosphatase 79 U/L (46-116); Anion Gap 5 (5-15); Aspartate Aminotransferase 15 U/L (13-40); BUN/Creatinine Ratio 11.6 (10.0-20.0); Blood Urea Nitrogen 16 mg/dL (9-23); Carbon Dioxide 29 mmol/L (20-31); Chloride 103 mmol/L (98-107); Glucose 103 mg/dL (74-106); Magnesium 2.2 mg/dL (1.6-2.6); Potassium 4.9 mmol/L (3.5-5.1); Sodium 137 mmol/L (136-145)
[2024-03-30 14:03] LABS: Bilirubin, Total 0.4 mg/dL (0.2-1.0)
[2024-03-30 14:04] LABS: Albumin 5.1 g/dL (3.2-4.8); Calcium 11.3 mg/dL (8.7-10.4); Total Protein 8.5 g/dL (5.7-8.2)
[2024-03-30 14:06] LABS: INR 0.94 (0.9-1.15); Partial Thromboplastin Time 26.6 SEC (24.5-34.5)
[2024-03-30 14:57] VITALS: BP 134/80; PULSE 82; RESP 18; TEMP 98.1; O2SAT 99
== END 2024-03-30 14:27 | disposition home or self-care (01) ==
LOC: ER 10:51
DX: E11.649 Type 2 diabetes mellitus with hypoglycemia without coma (principal); I12.9 Hypertensive chronic kidney disease with stage 1 through stage 4 chronic kidney disease, or unspecified chronic kidney disease; E11.22 Type 2 diabetes mellitus with diabetic chronic kidney disease; N18.30 Chronic kidney disease, stage 3 unspecified; J44.9 Chronic obstructive pulmonary disease, unspecified; M10.9 Gout, unspecified; Z98.890 Other specified postprocedural states; Z88.2 Allergy status to sulfonamides; Z79.51 Long term (current) use of inhaled steroids; Z79.52 Long term (current) use of systemic steroids; Z79.84 Long term (current) use of oral hypoglycemic drugs; Z79.899 Other long term (current) drug therapy; Z20.822 Contact with and (suspected) exposure to COVID-19
CPT/HCPCS: 36415; 71045; 80053; 80307; 81001; 83605; 83735; 83880; 84443; 85025; 85610; 85730; 87426; 87804; Q0162

== ENCOUNTER 2024-09-14 17:59 | Emergency (ER) | payer MEDICAID ==
[~2024-09-14] VITALS: Ht 154.9 cm; Wt 73.5 kg
--- NOTE | 2024-09-14 18:23 | ED.PDOC ---
History of present illness HPI Comments This is a 54 year old female presenting to the ED with chief complaint of hypoglycemia. Patient reports that she had been experiencing cold sweats today and that her latest blood glucose reading at 1800 was at 55. Patient relays that she has also been experiencing intermittent chest tightness for the past 6 months. Patient states she is currently being evaluated by a undercutter, being found to have a high heart rate when sleeping and moving around. Patient denies any exertion, skipped meals, nausea, vomiting, abdominal pain, dizziness, SOB, or fever. Chief Complaint: Hypoglycemia Time Seen by MD: 18:21 Primary Care Provider: HILDA History of present illness: Nurses Notes, Medications, Allergies Allergies: Coded Allergies: Sulfa Antibiotics (Verified Adverse Reaction, Severe, 02/29/16) Home Meds Reported Medications Budesonide-Formoterol Fumarate (Budesonide/Formoterol Fum 160-4.5 Mcg/Act) 1 Aer Aer, 2 PUFF IN BID, AER 12/07/23 Beclomethasone Dipropionate (Qvar Redihaler) 80 Mcg/Act Aer, 2 PUFF IN QID, AER 12/07/23 Prednisone (Prednisone) 10 Mg Tab, 1 TAB PO DAILY 12/07/23 Metoprolol Succinate (Metoprolol Succinate Er) 25 Mg Tab, 1 TAB PO QWEEKLY 12/07/23 Rosuvastatin Calcium (Rosuvastatin Calcium) 20 Mg Tab, 1 TAB PO DAILY 12/07/23 Hydrocodone-Acetaminophen (Hydrocodone/Acetaminophen 10-325 mg) 1 Tab Tab, 1 TAB PO Q6HPRN PRN for PAIN SCALE 7 THRU 10 12/07/23 Ferrous Sulfate (Iron) 325 Mg Tab, 325 MG PO DAILY, TAB 12/07/23 Folic Acid (Folic Acid) 1 Mg Tab, 1 TAB PO DAILY 12/07/23 Sitagliptin Phosphate (Januvia) 100 Mg Tab, 1 TAB PO DAILY 12/07/23 Amlodipine Besylate (Amlodipine Besylate) 2.5 Mg Tab, 1 TAB PO DAILY 12/07/23 Hydrochlorothiazide (Hydrochlorothiazide) 12.5 Mg Tab, 1 TAB PO QAM 12/07/23 Information Source: Patient Mode of Arrival: Ambulatory Timing: Hours, Months Duration: Since onset Prehospital treatment: None Symptoms: Sweaty History of: Diabetes Associated signs and symptoms: Chest Pain Past Medical History PAST MEDICAL HISTORY: Asthma, DM, HTN, TIA 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 VARNISHER History Family History Family History: Unknown Social History Smoker: Non-Smoker Alcohol: Denies ETOH Use Drugs: Denies Drug Use Lives In: Home Constitutional: reports: sweats; denies: chills, diaphoresis, fatigue, fever, malaise, weakness, others EENTM: denies: blurred vision, double vision, ear bleeding, ear discharge, ear drainage, ear pain, ear ringing, eye pain, eye redness, hearing loss, mouth pain, mouth swelling, nasal discharge, nose bleeding, nose congestion, nose pain, photophobia, tearing, throat pain, throat swelling, voice changes, others Respiratory: denies: cough, hemoptysis, orthopnea, SOB at rest, shortness of breath, SOB with excertion, stridor, wheezing, others Cardiovascular: reports: chest pain; denies: dizzy spells, diaphoresis, Dyspnea on exertion, edema, irregular heart beat, left arm pain, lightheadedness, palpitations, PND, syncope, others Gastrointestinal: denies: abdomen distended, abdominal pain, blood streaked bowels, constipated, diarrhea, dysphagia, difficulty swallowing, hematemesis, melena, nausea, poor appetite, poor fluid intake, rectal bleeding, rectal pain, vomiting, others Genitourinary: denies: abnormal vagina bleeding, burning, dyspareunia, dysuria, flank pain, frequency, hematuria, incontinence, pain, , vagina discharge, urgency, others Neurological: denies: dizziness, fainting, headache, left sided numbness, left sided weakness, numbness, paresthesia, pre-existing deficit, right sided numbness, right sided weakness, seizure, speech problems, tingling, tremors, w eakness, others Musculoskeletal: denies: back pain, gout, joint pain, joint swelling, muscle pain, muscle stiffness, neck pain, others Integumetry: denies: bruises, change in color, change in hair/nails, dryness, laceration, lesions, lumps, rash, wounds, others Allergic/Immunocompromised: denies: Difficulty Healing, Frequent Infections, Hives, Itching, others Hematologic/Lymphatic: denies: anemia, blood clots, easy bleeding, easy bruising, swollen glands, others Endocrine: denies: excessive hunger, excessive sweating, excessive thirst, excessive urination, flushing, intolerance to cold, intolerance to heat, unexplained weight gain, unexplained weight loss, others Psychiatric: denies: anxiety, bipolar disorder, depression, hopeless, panic disorder, schizophrenia, sleepless, suicidal, others All Other Systems: Reviewed and Negative Physical Exam General Appearance: No Apparent Distress, Normal HEENT: Normal ENT Inspection, Pharynx Normal, TMs Normal Neck: Full Range of Motion, Non-Tender, Normal, Normal Inspection Respiratory: Chest Non-Tender, Lungs Clear, No Accessory Muscle Use, No Respiratory Distress, Normal Breath Sounds Cardiovascular: No Edema, No JVD, No Murmur, No Gallop, Normal Peripheral Pulses, Regular Rate/Rhythm Breast Exam: Deferred Gastrointestinal: No Organomegaly, Non Tender, No Pulsatile Mass, Normal Bowel Sounds, Soft Genitalia: Deferred Pelvic: Deferred Rectal: Deferred Extremities: No calf tenderness, Normal capillary refill, Normal inspection, Normal range of motion, Non-tender, No pedal edema Musculoskeletal : Apperance: Normal Neurologic: Alert, supervisor color paste mixing II-XII nml as Tested, No Motor Deficits, Normal Affect, Normal Mood, No Sensory Deficits Cerebellar Function: Normal Reflexes: Normal Skin: Dry, Normal Color, Warm Lymphatic: No Adenopathy Was a procedure done? Was a procedure done?: No EKG EKG : Pulse Rate (adult): 85 [place]: Normal Cardiac Rhythm: NSR Block: None Hypertrophy: None ST: Normal Differential Diagnosis (DM) Differential Diagnosis: Hypoglycemia, Pyelonephritis, Other (acs, pneumonia, dietary or medication noncompliance) X-Ray, Labs, Meds, VS Vital Signs Date Time Temp Pulse Resp B/P (MAP) Pulse Ox O2 Delivery O2 Flow Rate FiO2 09/14/24 18:25 85 09/14/24 18:22 85 09/14/24 18:18 98.3 104 17 133/85 (101) 96 98.3 Lab Test 09/14/24 19:28 09/14/24 18:31 Range/Units Troponin I High Sensitivity Pending 10 </=34 ng/L White Blood Count 6.1 4.4-10.8 10^3/uL Red Blood Count 4.43 4.0-5.20 10^6/uL Hemoglobin 12.4 12.2-16.2 g/dL Hematocrit 37.8 36.0-46.0 % Mean Corpuscular Volume 85.3 80.0-100.0 fL Mean Corpuscular Hemoglobin 27.9 L 28.0-32.0 pg Mean Corpuscular Hemoglobin Concent 32.7 32.0-36.0 g/dL Red Cell Distribution Width 14.4 H 11.8-14.3 % Platelet Count 274 140-450 10^3/uL Mean Platelet Volume 9.8 6.9-10.8 fL Neutrophils (%) (Auto) 36.5 L 37.0-80.0 % Lymphocytes (%) (Auto) 46.9 10.0-50.0 % Monocytes (%) (Auto) 12.5 H 0.0-12.0 % Eosinophils (%) (Auto) 3.2 0.0-7.0 % Basophils (%) (Auto) 0.9 0.0-2.0 % Neutrophils # (Auto) 2.2 1.6-8.6 10 ^3/uL Lymphocytes # (Auto) 2.9 0.4-5.4 10 ^3/uL Monocytes # (Auto) 0.8 0-1.3 10 ^3/uL Eosinophils # (Auto) 0.2 0-0.8 10 ^3/uL Basophils # (Auto) 0.1 0-0.2 10 ^3/uL Nucleated Red Blood Cells 0.3 % Sodium Level 141 136-145 mmol/L Potassium Level 4.5 3.5-5.1 mmol/L Chloride Level 103 98-107 mmol/L Carbon Dioxide Level 28 20-31 mmol/L Anion Gap 10 5-15 Blood Urea Nitrogen 17 9-23 mg/dL Creatinine 1.50 H 0.550-1.02 mg/dL Glomerular Filtration Rate Calc 41 >90 mL/min BUN/Creatinine Ratio 11.3 10.0-20.0 Serum Glucose 88 74-106 mg/dL Calcium Level 10.7 H 8.7-10.4 mg/dL Time of 1ST Reevaluation: 19:19 Reevaluation 1ST: Unchanged Time of 2ND Reevaluation: 19:52 Reevaluation 2ND: Resolved Patient Education/Counseling: Diagnosis, Treatment, Prognosis, Need For Follow Up Family Education/Counseling: No Family Present Comments although pt is on an oral ddp4 inhibitor, she lives with reliable family who can monitor her. she has not had any further hypoglycemic episodew while here. her workup does not show an emergency condition that may have triggered the initial hypoglycemia. she is stable for discharge Additional Information Reviewed patient's previous visit(s): 12/05/23 for TIA The following tests were ordered, and results were reviewed by me: Accucheck, CBC, BMP, UA, Troponin, EKG, chest XR Additional information was gathered from interviewing the following independent historian: None I reviewed and agreed with the following test results read by other provider: Chest XR I discussed treatments and results with medical personnel and: Patient Comprehensive systems review obtained and negative except for what is stated in the HPI. SEPSIS Sepsis Screen Physician Orders Urinalysis (09/14/24 18:16) Chest Portable (09/14/24 18:16) Accucheck (09/14/24 19:00) Accucheck (09/14/24 20:00) Accucheck (09/14/24 21:00) Accucheck (09/14/24 22:00) Accucheck (09/14/24 23:00) Troponin-I Hs (09/14/24 19:16) Troponin-I Hs (09/14/24 21:16) Continuous Ekg Monitoring 08,12,16,20,00,04 (09/14/24 18:16) Electrocardigram (09/14/24 18:16) Electrocardigram (09/14/24 19:16) Electrocardigram (09/14/24 21:16) Vital Signs Date Time Temp Pulse Resp B/P (MAP) Pulse Ox O2 Delivery O2 Flow Rate FiO2 09/14/24 18:25 85 09/14/24 18:22 85 09/14/24 18:18 98.3 104 17 133/85 (101) 96 98.3 Laboratory Tests Test 09/14/24 18:31 White Blood Count 6.1 10^3/uL (4.4-10.8) Departure 1 Departure Time of Disposition: 19:54 Impression: Primary Impression: Diabetes mellitus with hypoglycemia Qualified Codes: E11.649 - Type 2 diabetes mellitus with hypoglycemia without coma Disposition: 01 HOME / SELF CARE / HOMELESS Condition: Good Discharged With: Self, Relative Critical Care Note Critical Care Time?: Yes (45 min-critical care time only) Critical care comment: due to concerns for patient's condition deteriorating, the care required my highest level of attention and readiness to intervene. i assessed the patient's condition, ordered the proper tests and treatments, reassessed for response and reviewed the results. i communicated with medical personnel and formulated a plan of care. total critical care time does not include any procedures Stability Stability form required: No Heart Score Heart Score: Heart Score Response (Comments) Value History N/A 0 EKG N/A 0 Age N/A 0 Risk Factors N/A 0 Troponin N/A 0 Total 0 I personally scribed for SHAY COELLO MD ([email or web address]) on 09/14/24 at 18:23. Electronically submitted by Stas Pulido ([email or web address]). I personally scribed for SHAY COELLO MD ([email or web address]) on 09/14/24 at 18:25. Electronically submitted by Stas Pulido ([email or web address]). SHAY COELLO MD Sep 14, 2024 18:23
[2024-09-14 18:57] LABS: Hematocrit 37.8 % (36.0-46.0); Hemoglobin 12.4 g/dL (12.2-16.2); Mean Corpuscular Hemoglobin 27.9 pg (28.0-32.0); Mean Corpuscular Volume 85.3 fL (80.0-100.0); Nucleated Red Blood Cells % 0.3 %
[2024-09-14 19:01] LABS: Chloride 103 mmol/L (98-107); Potassium 4.5 mmol/L (3.5-5.1); Sodium 141 mmol/L (136-145)
[2024-09-14 19:02] LABS: Anion Gap 10 (5-15); Carbon Dioxide 28 mmol/L (20-31)
--- NOTE | 2024-09-14 19:04 | DVH ---
CHEST RADIOGRAPH Indication: cp Technique: Single frontal view of the chest was obtained Comparison: XY CHEST PORTABLE on DOS: 03/30/24, XY CHEST PORTABLE on DOS: 09/17/22 FINDINGS: Lines and Tubes: None Lungs: No focal consolidation. Pleura: No effusion. No pneumothorax. Cardiomediastinal contours: Unremarkable Bones: No acute osseous abnormality. IMPRESSION: No acute cardiopulmonary disease.
[2024-09-14 19:06] LABS: Calcium 10.7 mg/dL (8.7-10.4)
[2024-09-14 19:07] LABS: BUN/Creatinine Ratio 11.3 (10.0-20.0); Blood Urea Nitrogen 17 mg/dL (9-23); Glucose 88 mg/dL (74-106)
[2024-09-14 20:10] VITALS: RESP 18; O2SAT 98
[2024-09-14 21:25] VITALS: BP 124/78; PULSE 98; RESP 17; TEMP 98; O2SAT 96
--- NOTE | 2024-09-16 06:39 | ECG ---
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
== END 2024-09-14 21:32 | disposition home or self-care (01) ==
LOC: ER 17:59
DX: E11.649 Type 2 diabetes mellitus with hypoglycemia without coma (principal); J45.909 Unspecified asthma, uncomplicated; I10 Essential (primary) hypertension; Z86.73 Personal history of transient ischemic attack (TIA), and cerebral infarction without residual deficits; Z88.2 Allergy status to sulfonamides; Z79.899 Other long term (current) drug therapy
CPT/HCPCS: 36415; 71045; 80048; 82947; 84484; 85025; 93005